=== PATIENT | male | born 1945 | race Caucasian/White ===

== ENCOUNTER 2017-11-10 06:11 | Emergency (ER) | payer MEDICARE, OTHER ==
[~2017-11-10] VITALS: Ht 167.6 cm; Wt 77.6 kg
[~2017-11-10 06:11] MED LIST: CLOPIDOGREL75 MG PO; DILAUDID4 MG PO; GABAPENTIN300 MG PO; LACTULOSE10 GM/15 M PO; LEVOTHYROXINE50 MCG PO; NAPROXEN500 MG PO; NITROSTAT0.4 MG SL; NORTRIPTYLINE H10 MG PO; OXYCODON-ACETA1 EAC2 PO; OXYCODONE HCL10 MG PO; OXYCODONE HCL5 MG PO; PERCOCET 7.5-31 EACH PO; RANITIDINE HCL150 MG PO; SIMVASTATIN10 MG PO; SIMVASTATIN20 MG PO; VITAMIN D32000 UNIT PO; XARELTO10 MG PO; ZOFRAN ODT4 MG PO
[2017-11-10] MEDS ORDERED: LISINOPRIL5 MG PO (06:22)
[2017-11-10] MEDS ORDERED: TERBINAFINE HC250 MG PO (06:24)
[2017-11-10] MEDS ORDERED: PROMETHAZINE HC25 M1 PO (10:06)
== END 2017-11-10 10:30 | disposition home or self-care (01) ==
LOC: ED 06:11
DX: K52.9 Noninfective gastroenteritis and colitis, unspecified (principal); J44.9 Chronic obstructive pulmonary disease, unspecified; E03.9 Hypothyroidism, unspecified; I10 Essential (primary) hypertension; I48.91 Unspecified atrial fibrillation; G43.909 Migraine, unspecified, not intractable, without status migrainosus; Z87.891 Personal history of nicotine dependence; Z88.8 Allergy status to other drugs, medicaments and biological substances; Z79.899 Other long term (current) drug therapy
CPT/HCPCS: 74177; 80053; 81001; 83690; 85025; 96374; 96375; 99284; J2405; J2550; J7040; Q9967

== ENCOUNTER 2018-11-23 06:55 | Day surgery (SDC) | payer MEDICARE, OTHER ==
[~2018-11-23] VITALS: Ht 167.6 cm; Wt 74.9 kg
[~2018-11-23 06:55] MED LIST changes: +ASPIRIN325 MG PO; +LISINOPRIL5 MG PO; +MULTIVITAMINS1 EAC8 PO; +PROMETHAZINE HC25 M1 PO; +TERBINAFINE HC250 MG PO
--- NOTE | 2018-11-23 09:56 | NUR ---
11/23/18 0955 Liv Chau 0952 PATIENT ARRIVES TO PACU UNRESPONSIVE TO VERBAL STIMULI. RESP EVEN AND UNLABORED, MASK AT 6 LITERS. 0955 PATIENT OPENS EYES TO VERBAL STIMULI, DENIES PAIN, THEN BACK TO SLEEP. RESP EVEN AND UNLABORED, MASK AT 6 LITERS.
--- NOTE | 2018-11-23 10:11 | NUR ---
PT IS BACK TO FROM PACU. HE IS SLIGHTLY DROWSY, BUT CURRENTLY AWAKE AND TALKING WITH HIS FRIEND AT THE BEDSIDE. CALL LIGHT IS WITHIN REACH. NO ADDITIONAL NEEDS AT THIS TIME. WATER ON BEDSIDE TABLE.
--- NOTE | 2018-11-23 10:23 | NUR ---
PATIENT UP TO THE BATHROOM WITH RN STANDBY. PATIENT AMBULATES WELL, REPORTS VOID AND IS GETTING DRESSED IN THE PRESENCE OF FAMILY. CRACKERS ARE GIVEN.
--- NOTE | 2018-11-23 11:17 | NUR ---
PATIENT DRESSED AND STANDING IN HIS DOORWAY ASKING TO BE DISCHARGED. PATIENT IS GIVEN DISCHARGE INSTRUCTIONS IN PRESENCE OF HIS FAMILY AND IS ACCOMPANIED OUT OF HOSPITAL BY ME AMBULATING. PATIENT DOES WELL WITH THAT.
--- NOTE | 2018-11-23 13:07 | OR ---
[facility] [address], [place] [address] Signed DATE OF OPERATION: 11/23/2018 SURGEON: Rodolfo Dean MD PREOPERATIVE DIAGNOSIS: Left facial skin lesion and the infected left mastoid cavity. POSTOPERATIVE DIAGNOSIS: Left facial skin lesion and the infected left mastoid cavity. PROCEDURES PERFORMED: 1. Wide local excision of left facial lesion with complex closure. 2. Cleaning of an infected mastoid cavity-complex. ANESTHESIA: General LMA; SALSA DANCE INSTRUCTOR, Laury Phillips. PREOP HISTORY: Mr. العلي is a 73-year-old man with an exophytic pearly ulcerated lesion of the left cheek, very suspicious for basal cell carcinoma. He also has a distant history of left mastoid operation with a copious debris infected, unable to clean this in the office, and he is taken to the operative room for the above-mentioned procedures. PROCEDURE AND FINDINGS: After informed consent, the patient was taken to the operating room and placed in supine position, where general LMA anesthesia was induced. The patient and procedure were verified. The left face was sterilely prepped and draped. The lesion in question was along the mandible ramus. Inferior margin measured about 3 x 4 cm in greatest diameter. After sterile prep and drape, excision, elliptical incision with 3 to 4 mm margin was marked with the long axis along the edge of the mandible. 1% lidocaine with epi was injected. A 67 Western blade was used to excise the lesion. The lesion was marked with a suture on the superior edge in was sent to pathology in formalin. Hemostasis was obtained with needle point cautery. Wound edges were elevated 1 cm to superiorly and inferiorly. The wound was then closed with 4-0 interrupted Vicryl subcu and george in the skin. Skin was cleansed and Neosporin was applied. The left ear was then examined with the operating microscope. The mastoid cavity was filled with squamous and ceruminous debris. This was all removed. Copious amounts of debris, some purulence, lots of inflammation. Mastoid cavity was completely cleaned. Fairly healthy-appearing squamous epithelium afterwards. A cotton ball was applied to Electronically Signed By: RODOLFO DEAN MD 11/23/18 1307 PATIENT NAME: MANE العلي OPERATIVE REPORT DATE OF : 47 REPORT #: [id number] PHYSICIAN: RODOLFO DEAN MD PCP: JEIMY ENGLISH MD REPORT IS CONFIDENTIAL AND NOT TO BE RELEASED WITHOUT AUTHORIZATION [facility] [address] [place] [id number] Signed the meatus. The patient was then awakened, extubated, transported to the recovery room in good condition. No complications. BLOOD LOSS: Minimal. SPECIMEN: To pathology. DRAINS: No drains. Rodolfo Dean MD GC/DEVORA /[id number] Copies: ~ Electronically Signed By: RODOLFO DEAN MD 11/23/18 1307 PATIENT NAME: MANE العلي OPERATIVE REPORT DATE OF : 47 REPORT #: [id number] PHYSICIAN: RODOLFO DEAN MD PCP: JEIMY ENGLISH MD REPORT IS CONFIDENTIAL AND NOT TO BE RELEASED WITHOUT AUTHORIZATION
== END 2018-11-23 11:05 | disposition home or self-care (01) ==
LOC: DS 06:55 → OPS 06:55 → DS 07:45 → OPS 07:45
PROVIDERS: Otolaryngology
PROC: 0HB3XZZ Excision of Left Ear Skin, External Approach (ICD-10-PCS; 2018-11-23)
PROC: 0HB1XZZ Excision of Face Skin, External Approach (ICD-10-PCS; principal; 2018-11-23 07:45)
DX: C44.319 Basal cell carcinoma of skin of other parts of face (principal); H70.92 Unspecified mastoiditis, left ear; I10 Essential (primary) hypertension; E03.9 Hypothyroidism, unspecified; E78.00 Pure hypercholesterolemia, unspecified; I25.10 Atherosclerotic heart disease of native coronary artery without angina pectoris; F17.200 Nicotine dependence, unspecified, uncomplicated; Z88.8 Allergy status to other drugs, medicaments and biological substances; Z88.1 Allergy status to other antibiotic agents; Z79.899 Other long term (current) drug therapy; Z79.82 Long term (current) use of aspirin; Z98.890 Other specified postprocedural states
CPT/HCPCS: 00300; 88305; J1100; J2250; J2405; J2704; J3010; J7120

== ENCOUNTER 2020-11-15 09:11 | Emergency (ER) | payer MEDICARE, OTHER ==
[~2020-11-15] VITALS: Ht 167.6 cm; Wt 74.8 kg
--- OUTSIDE RECORDS SUMMARY | 2020-11-15 09:26 | XMS ---
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 EDov VISIT COUNT (12 MO.) 1 WONG [place] TOTAL 1 NOTE: Visits indicate total known visits. ED/UCC VISIT TRACKING (12 MO.) 11/15/2020 09:12 WONG [place] OR TYPE: Emergency COMPLAINT: - ABDOMINAL PAIN, NAUSEA INPATIENT VISIT TRACKING (12 MO.) No inpatient visits to display in this time frame [email or web address]
[2020-11-15] MEDS ORDERED: ATORVASTATIN CA40 MG PO (09:42)
== END 2020-11-15 13:22 | disposition home or self-care (01) ==
LOC: ED 09:11
DX: R10.31 Right lower quadrant pain (principal); J44.9 Chronic obstructive pulmonary disease, unspecified; I10 Essential (primary) hypertension; I48.91 Unspecified atrial fibrillation; G43.909 Migraine, unspecified, not intractable, without status migrainosus; Z88.1 Allergy status to other antibiotic agents; Z79.899 Other long term (current) drug therapy; Z79.82 Long term (current) use of aspirin; Z98.890 Other specified postprocedural states
CPT/HCPCS: 74177; 80053; 81001; 85025; 96375; 99284-25; J1885; J2405; Q9967

== ENCOUNTER 2022-09-15 05:43 | Day surgery (SDC) | payer MEDICARE, OTHER ==
[~2022-09-15] VITALS: Ht 167.6 cm; Wt 70.9 kg
[~2022-09-15 05:43] MED LIST changes: +ATORVASTATIN CA40 MG PO; +MELOXICAM7.5 MG PO; +NAPROSYN500 MG PO; +PROBIOTIC1 EAC6 PO
[2022-09-15] MEDS ORDERED: FINASTERIDE5 MG PO (06:14)
[2022-09-15] MEDS ORDERED: FLOMAX0.4 MG PO (06:15)
--- NOTE | 2022-09-15 08:53 | NUR ---
09/15/22 0853 Gloria Maldonado 0837- PT AROUSABLE TO STIMULI. FALLS TO SLEEP WHEN NOT BEING TALKED TO. RESP EVEN AND UNLABORED. OXYGEN SAT MID 90'S ON RA. PT ENCOURAGED TO TAKE DEEP BREATHS. PT IS ABLE TO DO ONE BEFORE HE FALLS BACK TO SLEEP. 0845- PT IS MORE ALERT AND WANTING TO USE THE URINAL. PT PROVIDED A URINAL. 0851- PT ABLE TO URINATE [address] CANSECO NOTIFIED AND IS OKAY WITH HOW THE URINE LOOKS. 0853- PT REPORTING HE HAS A LEFT CALF CRAMP. STATES THIS HAPPENS WHEN HE DOESN'T HAVE ENOUGH WATER. PT PROVIDED WATER PER HIS REQUEST. TOLERATING WELL.
--- NOTE | 2022-09-15 09:46 | NUR ---
0915: PT ARRIVES TO DS RM 2 VIA STRETCHER FROM PACU AWAKE AND ALERT. PT DENIES "PAIN" AND STATES "AN ANNOYING URGE TO PEE AND BURNING." PT ASKS THIS RN HOW LONG IT TAKES FOR AZO MEDICATION TO KICK IN AND EDUCATION IS PROVIDED. PT STATES URGE TO VOID ON ARRIVAL AND IS BLADDER SCANNED OF APPROX [phone] MLS. PT WOULD LIKE TO WALK TO BATHROOM AND TRY, ABLE TO VOID 100 MLS RED URINE WITH NO CLOTS PRESENT. BACK TO DS RM 2 AND PROVIDED COFFEE AND CRACKERS PER REQUEST. BHAVNA HUGGER PLACED UNDER BLANKETS ON WARM. SCD'S REMOVED PER PT REQUEST. CALL LIGHT WITHIN REACH, DC CRITERIA EXPLAINED TO PT.
--- NOTE | 2022-09-15 09:49 | NUR ---
PT STANDS AT SIDE OF BED WITH NO DIZZINESS OR VISION CHANGES, ABLE TO VOID ANOTHER 100 MLS RED URINE WITH ONE SMALL CLOT NOTED IN URINAL. PT ASKS ABOUT CLOT AND IF IT IS NORMAL, EDUCATED ABOUT WHAT TO EXPECT AND WHAT IS WORRISOME. CALL LIGHT REMAINS IN PLACE.
[2022-09-15] MEDS ORDERED: OXYCODONE HCL5 MG PO (10:12)
[2022-09-15] MEDS ORDERED: LEVOFLOXACIN500 MG PO (10:12)
[2022-09-15] MEDS ORDERED: PYRIDIUM200 MG PO (10:12)
--- NOTE | 2022-09-15 11:03 | NUR ---
[id number]: PT STANDING AT BEDSIDE WITH SIGNIFICANT OTHER IN ROOM WITH PANTS IN PLACE AND GOWN ON TOP. URINAL WITH 250 MLS RED URINE ON BEDSIDE TABLE. WHEN ASKED ABOUT PAIN PT STATES 7/10 NOW AND OFFERED PAIN MEDICATION. PT DENIES PAIN MEDS AND STATES, "I JUST WANT TO GO HOME AND EAT SOME BREAKFAST... I WILL TAKE SOME FROM THE PHARMACY." DC INSTRUCTIONS PRESENTED TO PT AND SIG OTHER AT BEDSIDE, PROVIDED SCRIPT TO TAKE TO PHARMACY. [id number]: PT AMBULATES WITH STEADY GAIT TO BATHROOM AND VOIDS QS IN TOILET, COMES IN TO HALLWAY AND ASKS THIS RN ABOUT BLOOD CLOTS PRESENT. TWO SMALL CLOTS NOTED AND PT REASSURED SMALL CLOTS ARE OKAY, BUT TO NOTIFY MD OF LARGER CLOTS OR OPAQUE RED URINE. PT SIG OTHER PULLS VEHICLE TO FRONT ENTRANCE OF HOSPITAL AND PT DC VIA WC TO HOME.
--- NOTE | 2022-09-15 14:27 | NUR ---
PT ALERT, ORIENTED AND STATED RIGHT OFF KLHE IS READY FOR RELIEF. CAN NEVER GET A RESTFUL NIGHTS' SLEEP, ALWAYS UP USING BR. GAVE ENCOURAGEMENT, TALKED TO PT ABOUT USING PAIN SCALE. AT FIRST DIDN'T SEE ANY RELEVANCE, THEN WE DISCUSSED HE ACKNOWLEDGED. PT DECLINED PRAYER, GAVE BLESSING AND WILL FOLOW
--- NOTE | 2022-09-16 18:29 | OR ---
[facility] [address], [place] [address] Signed DATE OF OPERATION: 09/15/2022 SURGEON: Pilar Canseco MD PREOPERATIVE DIAGNOSIS: Bilobar benign prostatic hyperplasia with lower urinary tract symptoms. POSTOPERATIVE DIAGNOSIS: Bilobar benign prostatic hyperplasia with lower urinary tract symptoms. NAMES OF PROCEDURES: 1. Diagnostic cystoscopy. 2. UroLift preprocedure. ANESTHESIA: Monitored anesthesia care with an LMA. ESTIMATED BLOOD LOSS: Minimal. COMPLICATIONS: None. SPECIMENS: None. DRAINS: None. INDICATIONS FOR PROCEDURE: Mr. العلي is a very pleasant 77-year-old gentleman, who has a history of lower urinary tract symptoms for which he has been taking both daily finasteride and Flomax. His most significant complaint is nocturia, around 4 to 5 times a night as well as a weak force of stream and frequency. He recently underwent diagnostic cystoscopy which revealed bilobar prostatic hyperplasia with a moderate lateral lobe hypertrophy and around 2.5 cm from verumontanum to bladder neck. He presents today to undergo the UroLift procedure. He was well informed of the risks of the procedure, which include gross hematuria, urgency, frequency, and pelvic discomfort for approximately 2 to 4 weeks postoperatively. Electronically Signed By: PILAR CANSECO MD 09/16/22 1829 PATIENT NAME: MANE العلي OPERATIVE REPORT DATE OF : 47 REPORT #: [id number] PHYSICIAN: PILAR CANSECO MD PCP: BREEZY JACKSON MD REPORT IS CONFIDENTIAL AND NOT TO BE RELEASED WITHOUT AUTHORIZATION [facility] [address], [place] [address] Signed OPERATIVE FINDINGS: 1. On cystoscopy, there was no evidence of any suspicious masses, lesions, or stones. Bilateral ureteral orifices are in their normal anatomic location effluxing clear urine. 2. Ureteroscopy reveals no evidence of a median lobe. There is moderate lateral lobe hypertrophy with kissing lobes of the prostate. A total of four implants were placed, two on the left and two on the right. DESCRIPTION OF PROCEDURE: After informed consent was obtained, the patient was taken to the operating room and transferred from the [facility] to the operating room table, where MAC anesthesia was induced. He was placed in the dorsal lithotomy position and his genitalia were prepped and draped in a standard sterile fashion. A 20-Armenian cystoscope was inserted into the urethral meatus guided by a visual obturator. Inspection of the prostatic urethra was notable for the obstruction present as a result of the enlarged lateral lobes. A thorough cystoscopy was also then performed. Please see above findings. The visual obturator was then replaced with UroLift 2 system delivery device. The 1st treatment site was the patient's left side approximately 1.5 cm distal to the bladder neck. UroLift 2 system implantation steps were completed as indicated in the product documentation. The capsular tag was successfully deployed, the urethral end piece was successfully affixed to the suture, anesthesia was cut. The delivery device was then readvanced into the bladder and then removed from the sheath and the patient. The implant cartridge was removed from the delivery device, replaced with the scope seal, and the assembled device was reinserted. The implantation location and opening effects were confirmed cystoscopically. The same steps of the procedure were then performed on the right side approximately 1.5 cm from the bladder neck, followed by one additional implant just proximal to the verumontanum-one on the right and one on the left side of the prostate-following the indicated implantation technique. Intra-procedure cystoscopy then revealed a patent prostatic urethra from verumontanum to bladder neck. The final cystoscopy was also performed to inspect the location state of each implant, and 2nd to confirm the presence of a continuous anterior channel from verumontanum to bladder neck. This was present through the prostatic urethra with the irrigation flow turned off. The bladder was then filled with approximately 150 mL of irrigation fluid to assist the patient in a voiding trial after the procedure. All the instruments were then removed and the procedure was then terminated. The patient tolerated the procedure well without any complication. He will now be transferred to the postanesthesia care unit in stable condition. DISPOSITION: I discussed the details of today's procedure with the patient before the procedure and I also notified his ex-, Connie when the procedure was complete. He understands that he will experience urinary urgency, frequency, and pelvic discomfort for the next 2 to 3 weeks if not longer. He will be sent home today with Levaquin 500 mg one tablet p.o. Electronically Signed By: PILAR CANSECO MD 09/16/22 1829 PATIENT NAME: MANE العلي OPERATIVE REPORT DATE OF : 47 REPORT #: [id number] PHYSICIAN: PILAR CANSECO MD PCP: BREEZY JACKSON MD REPORT IS CONFIDENTIAL AND NOT TO BE RELEASED WITHOUT AUTHORIZATION [address] [address] Signed daily for a total of 7 days along with Pyridium 200 mg one tablet p.o. t.i.d. p.r.n. dysuria, dispense #21. He was also given a total of 10 pills of oxycodone 5 mg one tablet p.o. q.6 hours p.r.n. pain. He will be scheduled return to clinic in approximately two weeks to undergo his 1st postoperative evaluation with a PVR. MD RAMBO Mukherjee/DEVORA /[id number] Copies: ~ Electronically Signed By: PILAR CANSECO MD 09/16/22 1829 PATIENT NAME: MANE العلي OPERATIVE REPORT DATE OF : 47 REPORT #: [id number] PHYSICIAN: PILAR CANSECO MD PCP: BREEZY JACKSON MD REPORT IS CONFIDENTIAL AND NOT TO BE RELEASED WITHOUT AUTHORIZATION
== END 2022-09-15 10:47 | disposition home or self-care (01) ==
LOC: DS 05:43
PROVIDERS: ATTEND Urology
PROC: 0T7D8DZ Dilation of Urethra with Intraluminal Device, Via Natural or Artificial Opening Endoscopic (ICD-10-PCS; principal; 2022-09-15 07:30)
DX: N40.1 Benign prostatic hyperplasia with lower urinary tract symptoms (principal); R33.9 Retention of urine, unspecified; J44.9 Chronic obstructive pulmonary disease, unspecified; I25.10 Atherosclerotic heart disease of native coronary artery without angina pectoris; Z95.5 Presence of coronary angioplasty implant and graft; Z79.82 Long term (current) use of aspirin
CPT/HCPCS: C1889; J1956; J2001; J2250; J2370; J2704; J3010; J7121

== ENCOUNTER 2022-11-04 07:02 | Emergency (ER) | payer MEDICARE, OTHER ==
[~2022-11-04] VITALS: Ht 167.6 cm; Wt 70.8 kg
[~2022-11-04 07:02] MED LIST changes: +FINASTERIDE5 MG PO; +FLOMAX0.4 MG PO; +LEVOFLOXACIN500 MG PO; +PYRIDIUM200 MG PO
[2022-11-04 08:24] VITALS: BP 157/65
== END 2022-11-04 08:52 | disposition home or self-care (01) ==
LOC: ED 07:02
DX: M79.605 Pain in left leg (principal); J44.9 Chronic obstructive pulmonary disease, unspecified; I10 Essential (primary) hypertension; Z87.891 Personal history of nicotine dependence; Z88.1 Allergy status to other antibiotic agents; Z79.890 Hormone replacement therapy; Z79.899 Other long term (current) drug therapy
CPT/HCPCS: 93971; 99283-25